=== PATIENT | male | born 1965 | race Caucasian/White ===

== ENCOUNTER 2016-07-10 18:30 | Emergency (ER) ==
--- NOTE | 2016-07-10 19:03 | PROVIDER DOCUMENTATION ---
HPI-Respiratory General - General Chief Complaint: Shortness of Breath Stated Complaint: FATIGUE, SOB, CHEST PAINS Time Seen by Provider: 07/10/16 18:45 Source: patient Allergies/Adverse Reactions: Patient Allergies Allergy/AdvReac Type Severity Reaction Status Date / Time bupropion HCl * [From Zyban] Allergy Severe SWELLING Verified 03/30/16 19:16 methocarbamol [From Robaxin] Allergy Severe SWELLING Verified 03/30/16 19:16 Home Medications: Aspirin 81 mg PO DAILY 07/10/16 - History of Present Illness-Resp Nature of Presenting Problem: 51 year old M presents to the ED with a cc of chest pain and shortness of breath. Pt states that he had 5 episodes of 10-15 minutes of chest pain and shortness of breath with an onset of this afternoon. Denies nausea, vomiting, and pain radiation. Quality of Pain: reports: tightness Severity in ED: reports: mild Onset/Duration: reports: this afternoon Timing: reports: still present Exposure: reports: unknown cause Cough Quality/Degree: reports: no cough Current Respiratory Medication Therapy: Initiated see nurses note Modifying Factors: improves with: nothing Associated Symptoms: reports: chest pain/soreness, shortness of breath Similar Symptoms Previously?: No Recently seen or treated by another doctor?: No Review of Systems - Adult - REVIEW OF SYSTEMS - ADULT Constitutional: denies: chills, fever Eyes: reports: no symptoms reported Ears, Nose, Mouth & Throat: reports: no symptoms reported Cardiovascular: reports: chest pain. denies: palpitations Respiratory: reports: shortness of breath. denies: cough Gastrointestinal: denies: nausea, vomiting Genitourinary: reports: no symptoms reported Musculoskeletal: reports: no symptoms reported Integumentary: reports: no symptoms reported Neurological: reports: no symptoms reported Psychiatric: reports: no symptoms reported Endocrine: reports: no symptoms reported Hematologic/Lymphatic: reports: no symptoms reported Allergic/Immunologic: reports: no symptoms reported All Other Systems: Reviewed and Negative Past History - Adult - PAST MEDICAL HISTORY-ADULT Review of Records: reports: Nursing Assessment Review, Medications Reviewed Major Childhood Illnesses: reports: denies history Other Conditions: reports: MRSA, other (staph) - PRIOR SURGERIES/PROCEDURES Surgical/Procedure History: reports: cholecystectomy, orthopedic (extremity) ( shoulder, knee, hand, and foot), back/neck - IMMUNIZATION STATUS Childhood Immunizations: See Nurse Assessment Flu Vaccine: See Nurse Assessment - FAMILY HISTORY Family History: reviewed, not pertinent - SOCIAL HISTORY Smoking: cigarettes, greater than 1 pack/day Provider spent 3-5 mins advising pt. on dangers of tobacco.: Discussed manners to quit use, and f/u contacts for add'l counseling. Substance Use: none/never Alcohol Use Frequency: never Physical Exam-General - PHYSICAL EXAM-ADULT Initial Vital Signs Reviewed: Yes - CONSTITUTIONAL General Appearance: appears well, alert, no apparent distress - RESPIRATORY Respiratory: chest non-tender, lungs clear, normal breath sounds - CARDIOVASCULAR Cardiovascular: normal peripheral pulses, regular rate, rhythm, no edema - GASTROINTESTINAL (ABDOMEN) Abdominal Exam: normal bowel sounds, non tender, soft - MUSCULOSKELETAL Extremity: normal inspection, no pedal edema - SKIN Integumentary: normal color, normal turgor, warm/dry - PSYCHIATRIC Psych/Mental Status: normal mood/affect, normal thought content, normal thought process, oriented x 3 Progress - PLAN OF CARE/RESULTS Progress/Plan/Lab Results: plan of care: labs, EKG, imaging. Orders Category Date Time Status Cardiac Monitoring DIRECTED Care 07/10/16 18:43 Active Oxygen Therapy- ED Nursing DIRECTED Care 07/10/16 18:43 Active Saline Loc NOW Care 07/10/16 18:43 Active CHEST-2 VIEWS [RAD] Stat Exams 07/10/16 18:43 Taken CBC WITH ELECTRONIC DIFF [HEME] Stat Lab 07/10/16 18:58 Completed CK PROFILE [SP CHEM] Stat Lab 07/10/16 18:58 Completed CK PROFILE [SP CHEM] Stat Lab 07/10/16 20:40 Completed CK PROFILE [SP CHEM] Stat Lab 07/10/16 22:50 Completed COMPREHENSIVE METABOLIC PANEL [CHEM] Stat Lab 07/10/16 18:58 Completed MAGNESIUM [CHEM] Stat Lab 07/10/16 18:58 Completed PRO B-NATRIURETIC PEPTIDE Stat Lab 07/10/16 18:58 Completed PROTIME WITH INR PL [COAG] Stat Lab 07/10/16 18:[address] [COAG] Stat Lab 07/10/16 18:58 Completed TROPONIN T Stat Lab 07/10/16 18:58 Completed TROPONIN T Stat Lab 07/10/16 20:40 Completed TROPONIN T Stat Lab 07/10/16 22:50 Completed EKG [EKG] Stat Ther 07/10/16 18:43 Ordered EKG [EKG] Stat Ther 07/10/16 20:40 Draft EKG [EKG] Stat Ther 07/10/16 23:38 Draft Laboratory Tests 07/10/16 07/10/16 07/10/16 18:58 18:58 18:58 WBC RBC Hgb Hct MCV MCH MCHC RDW Std Deviation Plt Count MPV Immature Gran % (Auto) Neut % (Auto) Lymph % (Auto) Meigs % (Auto) Eos % (Auto) Baso % (Auto) Immature Gran # (Auto) Neut # (Auto) Lymph # (Auto) Meigs # (Auto) Eos # (Auto) Baso # (Auto) PT INR APTT (Factor Assay) Sodium 138 Potassium 3.5 Chloride 100 Carbon Dioxide 27 Anion Gap 11 BUN 9 Creatinine 1.0 Estimated GFR/1.73 m2 > 60 BUN/Creatinine Ratio 9 Glucose 120 H Calculated Osmolality 276 Calcium 8.5 L Magnesium 2.1 Total Bilirubin 0.30 AST 13 ALT 13 Alkaline Phosphatase 74 Creatine Kinase 192 Troponin T < 0.010 Nps-O-Wmibaybzdos Pept 52 Total Protein 6.2 L Albumin 3.9 Globulin 2.0 Albumin/Globulin Ratio 2.0 07/10/16 07/10/16 07/10/16 18:58 18:58 20:40 WBC 7.07 RBC 4.45 L Hgb 14.2 Hct 40.2 L MCV 90.3 MCH 31.9 H MCHC 35.3 RDW Std Deviation 13.2 Plt Count 198 MPV 9.6 Immature Gran % (Auto) 0.0 Neut % (Auto) 63.1 Lymph % (Auto) 28.4 Meigs % (Auto) 6.5 Eos % (Auto) 1.6 Baso % (Auto) 0.4 Immature Gran # (Auto) 0.00 Neut # (Auto) 4.46 Lymph # (Auto) 2.01 Meigs # (Auto) 0.46 Eos # (Auto) 0.11 Baso # (Auto) 0.03 PT 12.4 INR 0.89 APTT (Factor Assay) 29.9 Sodium Potassium Chloride Carbon Dioxide Anion Gap BUN Creatinine Estimated GFR/1.73 m2 BUN/Creatinine Ratio Glucose Calculated Osmolality Calcium Magnesium Total Bilirubin AST ALT Alkaline Phosphatase Creatine Kinase 177 Troponin T Wzv-P-Mjqndgtrxva Pept Total Protein Albumin Globulin Albumin/Globulin Ratio 07/10/16 07/10/1607/10/17 20:40 22:50 22:50 WBC RBC Hgb Hct MCV MCH MCHC RDW Std Deviation Plt Count MPV Immature Gran % (Auto) Neut % (Auto) Lymph % (Auto) Meigs % (Auto) Eos % (Auto) Baso % (Auto) Immature Gran # (Auto) Neut # (Auto) Lymph # (Auto) Meigs # (Auto) Eos # (Auto) Baso # (Auto) PT INR APTT (Factor Assay) Sodium Potassium Chloride Carbon Dioxide Anion Gap BUN Creatinine Estimated GFR/1.73 m2 BUN/Creatinine Ratio Glucose Calculated Osmolality Calcium Magnesium Total Bilirubin AST ALT Alkaline Phosphatase Creatine Kinase 164 Troponin T < 0.010 < 0.010 Wik-P-Oqbkpucymil Pept Total Protein Albumin Globulin Albumin/Globulin Ratio Vital Signs - 24 hr 07/10/16 07/10/16 07/10/16 18:40 18:50 21:32 Temperature 97.6 F 98.4 F Pulse Rate 84 77 68 Respiratory 18 20 16 Rate Blood Pressure 125/64 135/81 123/61 O2 Sat by Pulse 96 95 99 Oximetry Pt given results and will be d/c home w/o rx to follow up with PCP. Pt verbally understood instructions. PT remained clinically stable throughout the course of the ED stay and will return if symptoms worsen. - EKG 1 Time of EKG reading by physician:: 20:40 EKG Read and Signed by:: Nico Ha EKG Interpretation (*Must complete 3 of following elements*): Normal Rate: 72 Rhythm: NSR [place]: normal 2 Time of EKG reading by physician:: 23:51 EKG Read and Signed by:: Nico Ha EKG Interpretation (*Must complete 3 of following elements*): Normal Rate: 63 Rhythm: NSR [place]: normal - XRAY 1 XRAY Study: Chest Impression: Abnormal XRAY Interpretation: flattened diaphragms, otherwise NAD: Dr. Ha Departure - Departure Time of Disposition Order: 00:25 DIAGNOSIS: Atypical chest pain Disposition: HOME 01 Certified Medical Emergency: Emergent Condition: Good Additional Instructions: [facility] Return to ED for any new or worsening symptoms. Establish care with a primary physician by calling the physician referral line below ED Follow Up Instructions: You have been treated by a care provider in the Emergency Department. These instructions are being provided to you so you can have an understanding of how to care for yourself upon discharge. Upon discharge from the Emergency Department, you are responsible for making arrangements for follow-up care by a physician of your choice. Take all prescribed medications as directed. Return to the Emergency Department immediately for any new or worsening symptoms. You may call the Physician Referral phone number at [phone] to obtain a list of Physicians who are taking new patients. Referrals: Marquise Medina MD [Primary Care Provider] - Attestation - Scribe Verification/Attestation Scribe:: Jessica Dye Acting as Scribe for:: Nico Ha Scribe documention review:: This chart was documented by a scribe and accurately reflects the service the provider performed and the decisions made by the provider. Physician Attestation - Physician Attestation I, the provider, attest to the following statement:: Nico Ha Physician documentation Attestation:: This documentation recorded by the scribe accurately reflects the service I personally performed and the decisions made by me.
[2016-07-10 19:08] LABS: MANUAL DIFF NEEDED? NO
[2016-07-10 19:11] LABS: BASO% 0.4 % (0.0-0.8); EOS# 0.11 X1000 (0.0-0.7); EOS% 1.6 % (0.0-10.0); HEMATOCRIT 40.2 % (42.0-52.0); HEMOGLOBIN 14.2 g/dL (14.0-18.0); LYMPH# 2.01 X1000 (1.2-3.4); LYMPH% 28.4 % (20.5-51.1); MCH 31.9 PG (27-31); MCHC 35.3 g/dL (33-37); MCV 90.3 FL (81-99); MONO# 0.46 X1000 (0.11-0.59); MONO% 6.5 % (1.7-9.3); MPV 9.6 FL (7.4-10.4); NEUT% 63.1 % (42.2-75.2); PLT 198 X1000 (130-400); RBC 4.45 XMIL (4.7-6.1)
[2016-07-10 19:26] LABS: INR 0.89 (0.86-1.15); PROTIME 12.4 Seconds (12.1-15.5); PTT PL 29.9 Seconds (22.6-43.9)
[2016-07-10 19:30] LABS: AGAP 11; ALBUMIN 3.9 g/dL (3.5-5.0); ALKALINE PHOSPHATASE 74 U/L (32-122); BUN 9 mg/dL (8-22); CALCIUM 8.5 mg/dL (8.8-10.2); CHLORIDE 100 mmol/L (98-107); CK PROFILE 192 U/L (24-204); COSMO 276; GOT 13 U/L (10-34); GPT 13 U/L (10-44); MAGNESIUM 2.1 mg/dL (1.5-2.7); POTASSIUM 3.5 mmol/L (3.5-5.1); SODIUM 138 mmol/L (136-145); TCO2 27 mmol/L (25-35); TOTAL PROTEIN 6.2 g/dL (6.3-8.3)
--- NOTE | 2016-07-10 20:50 | EKG Report ---
Test Performed on : 07/10/2016 8:40:37 PM Test Reason : cp Blood Pressure : / mmHG Vent. Rate : 072 BPM Atrial Rate : 072 BPM P-R Int : 142 ms QRS Dur : 096 ms QT Int : 398 ms P-R-T Axes : 075 065 066 degrees QTc Int : 435 ms Normal sinus rhythm. Normal ECG No previous ECGs available Unconfirmed Result
--- NOTE | 2016-07-11 00:01 | EKG Report ---
Test Performed on : 07/10/2016 11:51:44 PM Test Reason : cp Blood Pressure : / mmHG Vent. Rate : 063 BPM Atrial Rate : 063 BPM P-R Int : 132 ms QRS Dur : 096 ms QT Int : 414 ms P-R-T Axes : 075 070 074 degrees QTc Int : 423 ms Normal sinus rhythm. Normal ECG When compared with ECG of 10-JUL-2016 20:40, (Unconfirmed) No significant change was found Unconfirmed Result
[2016-07-11 00:50] VITALS: BP 118/71
--- NOTE | 2016-07-11 10:02 | Diag Imaging Result Document ---
PROCEDURE NAME: CHEST-2 VIEWS - 07/10/2016 PA AND LATERAL RADIOGRAPH OF THE CHEST: COMPARISON: 08/29/2015. FINDINGS: Lungs are somewhat hyperinflated, stable. The lungs are clear otherwise. There is no definite pleural fluid collection. Cardiac silhouette is unremarkable. IMPRESSION: Suggestion of stable COPD. No definite acute pathology.
== END 2016-07-11 00:47 | disposition home or self-care (01) ==
LOC: P.ED 18:30
DX: R07.89 Other chest pain (principal); R06.02 Shortness of breath; R53.83 Other fatigue; F17.210 Nicotine dependence, cigarettes, uncomplicated; Z79.82 Long term (current) use of aspirin; Z71.6 Tobacco abuse counseling; Z86.14 Personal history of Methicillin resistant Staphylococcus aureus infection
CPT/HCPCS: 71020; 80053; 82550; 83735; 83880; 84484; 85025; 85610; 85730; 93005; 99284